=== PATIENT | female | born 1960 | race African-American/Black ===

== ENCOUNTER 2022-07-10 14:51 | Emergency (ER) | payer OTHER ==
[~2022-07-10] VITALS: Ht 180.3 cm; Wt 113.0 kg
[2022-07-10] MEDS ORDERED: SODIUM CHLORIDE 0.9% 1,000 ML IV ONE ×2 (15:45→18:30)
[2022-07-10] MEDS ORDERED: ACETAMINOPHEN 325MG TABLET PO ONE (15:45)
[2022-07-10 16:52] LABS: BASOPHILS % 0.3 % (0.0-2.0); HEMATOCRIT. 39.9 % (36.0-48.0); HEMOGLOBIN. 13.1 g/dL (12.0-16.0); LYMPHOCYTES % 16.7 % (20.0-50.0); MEAN CORPUSCULAR HEMOGLOBIN 27.6 pg (28.0-32.0); MEAN CORPUSCULAR VOLUME 84.4 fL (81.0-99.0); MEAN PLATELET VOLUME 11.4 fl (7.4-10.4); MONOCYTES % 10.3 % (2.0-8.0); NEUTROPHILS % 72.7 % (40.0-76.0); PLATELET 54 x1000/uL (130-400); RED BLOOD CELL COUNT 4.73 mill/uL (4.2-5.4); RED CELL DISTRIBUTION WIDTH 14.4 % (11.6-14.6)
[2022-07-10 17:02] LABS: PROTHROMBIN TIME 10.9 sec (9.6-11.0)
[2022-07-10 17:05] LABS: CHLORIDE 96 mEq/L (98-107)
[2022-07-10 17:19] LABS: BETA HYDROXYBUTYRATE 0.1 mMol/L (0.0-0.3)
[2022-07-10] MEDS ORDERED: INSULIN REGULAR (HUMULIN R) 300UNITS/3ML VIAL SUBCUT NR (18:30)
[2022-07-10] MEDS ORDERED: ACETAMINOPHEN 325MG TABLET PO NR (18:30)
[2022-07-10 20:59] VITALS: BP 155/88
== END 2022-07-10 21:29 | disposition short-term general hospital (02) ==
LOC: ER 14:51 → EDBEDREQ 18:40 → ER 21:29 → CANBEDREQ 07-11 11:44
DX: E86.0 Dehydration (principal); R19.7 Diarrhea, unspecified; R53.1 Weakness; R79.89 Other specified abnormal findings of blood chemistry; E11.65 Type 2 diabetes mellitus with hyperglycemia; J45.909 Unspecified asthma, uncomplicated; I10 Essential (primary) hypertension; Z90.710 Acquired absence of both cervix and uterus; Z90.49 Acquired absence of other specified parts of digestive tract; Z88.0 Allergy status to penicillin; Z98.890 Other specified postprocedural states; Z20.822 Contact with and (suspected) exposure to COVID-19
CPT/HCPCS: 36415; 74176; 80053; 82010; 82962; 83605; 83690; 83880; 84484; 85025; 85610; 87040; 87426; 93005; 96360; 96361; 99285; C9803; J7030